=== PATIENT | male | born 1965 | race Caucasian/White ===

== ENCOUNTER 2023-06-30 16:06 | Inpatient (IN) | payer MEDICARE, OTHER ==
[~2023-06-30] VITALS: Ht 175.3 cm; Wt 131.5 kg
[2023-06-30 17:16] LABS: BASOPHILS # (AUTO) 0.1 K/uL (0.0-0.2); EOSINOPHILS # (AUTO) 0.1 K/uL (0.0-0.7); EOSINOPHILS % (AUTO) 1.5 % (0.0-6.0); HEMATOCRIT 42 % (39-51); HEMOGLOBIN 14.2 g/dL (13.5-17.5); LYMPHOCYTES # (AUTO) 1.3 K/uL (0.8-4.8); LYMPHOCYTES % (AUTO) 26.3 % (20.0-44.0); MEAN CORPUSCULAR HEMOGLOBIN 33 PG (26.0-33.0); MEAN CORPUSCULAR HGB CONC 34 g/dl (31.0-36.0); MEAN CORPUSCULAR VOLUME 95 fL (80-96); MONOCYTES # (AUTO) 0.7 K/uL (0.1-1.30); MONOCYTES % (AUTO) 13.2 % (2.0-12.0); NEUTROPHILS # (AUTO) 2.9 K/uL (1.8-8.9); PLATELET COUNT (AUTO) 180 K/uL (150-450); RED BLOOD CELL COUNT(AUTO) 4.35 MIL/uL (4.5-6.0); RED CELL DISTRIBUTION WIDTH 13.1 % (11.5-15.0); WHITE BLOOD COUNT (AUTO) 5.1 K/uL (4.3-11.0)
[2023-06-30 17:21] LABS: APPEARANCE,URINE CLEAR (CLEAR); BILIRUBIN,URINE NEGATIVE (NEGATIVE); BLOOD, URINE NEGATIVE Ery/uL (NEGATIVE); COLOR,URINE YELLOW (YELLOW); KETONES,URINE TRACE mg/dL (NEGATIVE); LEUKOCYTE ESTERASE ,URINE NEGATIVE (NEGATIVE); NITRITE, URINE NEGATIVE (NEGATIVE); PH,URINE 7.5 (5.0-8.0); PROTEIN,URINE NEGATIVE (NEGATIVE); UGLUCOSE NEGATIVE (NEGATIVE); UROBILINOGEN,URINE 0.2 EU/dL (0.2)
[2023-06-30 17:27] LABS: CALCIUM, SERUM 9.2 mg/dL (8.5-10.1); CREATININE 0.9 mg/dL (0.6-1.3); POTASSIUM 4.3 mmol/L (3.5-5.1)
[2023-06-30 17:27] LABS: ADD URINE CULTURE NO; BACTERIA,URINE None seen /HPF (None Seen); RBC,URINE 0-2 /HPF (0-2); SQUAMOUS EPITHELIAL CELL,UR 0-2 /HPF (None Seen); WBC,URINE 0-2 /HPF (0-3)
[2023-06-30] MEDS ORDERED: MORPHINE SULFATE INJ 2 MG/ML DISP.SYRIN IV PRN (17:30)
[2023-06-30] MEDS ORDERED: MAGNESIUM HYDROXIDE 30 ML UDC PO PRN (17:30)
[2023-06-30] MEDS ORDERED: ONDANSETRON HCL/PF 4 MG/2 ML VIAL IVP PRN (17:30)
[2023-06-30] MEDS ORDERED: MAG HYDROX/AL HYDROX/SIMETH 30 ML UDC PO PRN (17:30)
[2023-06-30] MEDS ORDERED: ACETAMINOPHEN 325 MG TABLET PO PRN (17:30)
[2023-06-30 18:06] LABS: ANISOCYTOSIS 1+; BAND % (MANUAL) 2 % (0.0-5.0); LYMPHOCYTES % (MANUAL) 29 % (16-48); MONOCYTES % (MANUAL) 11 % (0-11.0); NEUTROPHILS % (MANUAL) 58 (42-76); PLATELET ESTIMATE ADEQUATE
[2023-06-30 21:00] VITALS: BP 136/99; TEMP 97.9; O2SAT 93
[2023-07-01 00:08] VITALS: BP 136/99; TEMP 97.9; O2SAT 95
[2023-07-01] MEDS ORDERED: LACT10SO58 PO (01:59)
[2023-07-01] MEDS ORDERED: HALO10TA13 PO (01:59)
[2023-07-01] MEDS ORDERED: DIVA500T2 PO (01:59)
[2023-07-01] MEDS ORDERED: CARV6.25 PO (01:59)
[2023-07-01] MEDS ORDERED: TYL2T PO (01:59)
[2023-07-01] MEDS ORDERED: OLAN7.5T3 PO (01:59)
[2023-07-01] MEDS ORDERED: ONDA-97 PO (01:59)
[2023-07-01] MEDS ORDERED: DIVA-78 PO (01:59)
[2023-07-01] MEDS ORDERED: OLAN5TAB3 PO (01:59)
[2023-07-01 05:56] LABS: BASOPHILS % (AUTO) 0.5 % (0.0-2.0); EOSINOPHILS # (AUTO) 0.1 K/uL (0.0-0.7); EOSINOPHILS % (AUTO) 1.9 % (0.0-6.0); HEMATOCRIT 39 % (39-51); HEMOGLOBIN 13.4 g/dL (13.5-17.5); LYMPHOCYTES # (AUTO) 1.4 K/uL (0.8-4.8); LYMPHOCYTES % (AUTO) 33.2 % (20.0-44.0); MEAN CORPUSCULAR HEMOGLOBIN 33 PG (26.0-33.0); MEAN CORPUSCULAR HGB CONC 35 g/dl (31.0-36.0); MEAN CORPUSCULAR VOLUME 96 fL (80-96); MONOCYTES # (AUTO) 0.5 K/uL (0.1-1.30); NEUTROPHILS # (AUTO) 2.2 K/uL (1.8-8.9); NEUTROPHILS % (AUTO) 52.4 % (43.0-81.0); PLATELET COUNT (AUTO) 153 K/uL (150-450); RED BLOOD CELL COUNT(AUTO) 4.05 MIL/uL (4.5-6.0); RED CELL DISTRIBUTION WIDTH 13.2 % (11.5-15.0); WHITE BLOOD COUNT (AUTO) 4.2 K/uL (4.3-11.0)
[2023-07-01 06:13] LABS: ALBUMIN 2.9 g/dL (3.4-5.0); BILIRUBIN,TOTAL 0.4 mg/dL (0.2-1.0); CALCIUM, SERUM 8.8 mg/dL (8.5-10.1); CREATININE 0.8 mg/dL (0.6-1.3); POTASSIUM 4.4 mmol/L (3.5-5.1); TOTAL PROTEIN, SERUM 6.2 g/dL (6.4-8.2)
[2023-07-01 06:15] LABS: EOSINOPHILS % (MANUAL) 1 % (0-4); LYMPHOCYTES % (MANUAL) 39 % (16-48); MONOCYTES % (MANUAL) 10 % (0-11.0); NEUTROPHILS % (MANUAL) 50 (42-76); PLATELET ESTIMATE ADEQUATE
[2023-07-01 08:00] VITALS: BP 125/77; TEMP 98.7; O2SAT 94
[2023-07-01] MEDS ORDERED: DIVALPROEX SODIUM 500 MG TABLET.DR PO SCH (09:00)
[2023-07-01] MEDS ORDERED: CHOL3000 PO (09:11)
[2023-07-01] MEDS ORDERED: SODI100037 PO (09:11)
[2023-07-01] MEDS ORDERED: ACET-868 PO (09:11)
[2023-07-01] MEDS ORDERED: MULT-754 PO (09:11)
[2023-07-01] MEDS: OLANZAPINE 5 MG TABLET PO SCH (09:35)
[2023-07-01] MEDS: CARVEDILOL 6.25 MG TABLET PO SCH ×2 (09:35→16:36)
[2023-07-01] MEDS: DIVALPROEX SODIUM 500 MG TABLET.DR PO SCH ×2 (09:35→16:37)
[2023-07-01] MEDS: HALOPERIDOL 5 MG TABLET PO SCH ×2 (09:36→16:36)
[2023-07-01 16:00] VITALS: BP 116/80; TEMP 98.2; O2SAT 96
[2023-07-01] MEDS: OLANZAPINE 2.5 MG TABLET PO SCH (17:05)
[2023-07-01] MEDS: ENOXAPARIN SODIUM 40 MG/0.4 ML DISP.SYRIN SQ SCH (17:12)
[2023-07-01 20:00] VITALS: BP 110/75; TEMP 97.9; O2SAT 93
[2023-07-02 08:00] VITALS: BP 127/83; TEMP 97.7; O2SAT 95
[2023-07-02] MEDS: OLANZAPINE 5 MG TABLET PO SCH (08:13)
[2023-07-02] MEDS: DIVALPROEX SODIUM 500 MG TABLET.DR PO SCH ×2 (08:13→17:18)
[2023-07-02] MEDS: HALOPERIDOL 5 MG TABLET PO SCH ×2 (08:14→17:18)
[2023-07-02] MEDS: CARVEDILOL 6.25 MG TABLET PO SCH ×2 (08:15→17:17)
[2023-07-02 15:59] VITALS: BP 138/94; TEMP 97.5; O2SAT 94
[2023-07-02] MEDS: ENOXAPARIN SODIUM 40 MG/0.4 ML DISP.SYRIN SQ SCH (17:15)
[2023-07-02] MEDS: OLANZAPINE 2.5 MG TABLET PO SCH (17:18)
[2023-07-02 20:46] VITALS: BP 115/77; TEMP 98.4; O2SAT 92
[2023-07-03 08:00] VITALS: BP 127/84; TEMP 97.6; O2SAT 94
[2023-07-03] MEDS: HALOPERIDOL 5 MG TABLET PO SCH (08:52)
[2023-07-03 08:53] VITALS: BP 127/84
[2023-07-03] MEDS: OLANZAPINE 5 MG TABLET PO SCH (08:53)
[2023-07-03] MEDS: DIVALPROEX SODIUM 500 MG TABLET.DR PO SCH (08:53)
[2023-07-03] MEDS: CARVEDILOL 6.25 MG TABLET PO SCH (08:53)
== END 2023-07-03 13:54 | DRG 641 ==
LOC: ER 16:30 → MED 18:45
PROVIDERS: ADMIT Internal Medicine; ATTEND Internal Medicine
DX: R62.7 Adult failure to thrive (principal); E87.1 Hypo-osmolality and hyponatremia; N39.0 Urinary tract infection, site not specified; F20.9 Schizophrenia, unspecified; G40.909 Epilepsy, unspecified, not intractable, without status epilepticus; R33.9 Retention of urine, unspecified; I10 Essential (primary) hypertension; J44.9 Chronic obstructive pulmonary disease, unspecified; F31.9 Bipolar disorder, unspecified; F41.9 Anxiety disorder, unspecified; G47.00 Insomnia, unspecified; E55.9 Vitamin D deficiency, unspecified; F79 Unspecified intellectual disabilities; D64.9 Anemia, unspecified
CPT/HCPCS: 36415; 80048-TC; 80053-TC; 80164-TC; 81001; 83735-TC; 84100-TC; 85025-TC; 87081-TC; G0378; J1650

== ENCOUNTER 2024-12-18 15:56 | Inpatient (IN) | payer MEDICARE, OTHER ==
[~2024-12-18] VITALS: Ht 175.3 cm; Wt 139.3 kg
[~2024-12-18 15:56] MED LIST: ACET-868 PO; CARV6.25 PO; CHOL3000 PO; DIVA500T2 PO; HALO10TA13 PO; LACT10SO58 PO; MULT-754 PO; OLAN5TAB3 PO; OLAN7.5T3 PO; ONDA-97 PO; SODI100037 PO
[2024-12-18 17:09] LABS: BASOPHILS % (AUTO) 0.8 % (0.0-2.0); EOSINOPHILS # (AUTO) 0.1 K/uL (0.0-0.7); EOSINOPHILS % (AUTO) 1.2 % (0.0-6.0); HEMATOCRIT 44 % (39-51); LYMPHOCYTES # (AUTO) 1.6 K/uL (0.8-4.8); LYMPHOCYTES % (AUTO) 26.2 % (20.0-44.0); MEAN CORPUSCULAR HEMOGLOBIN 34 PG (26.0-33.0); MEAN CORPUSCULAR HGB CONC 34 g/dl (31.0-36.0); MEAN CORPUSCULAR VOLUME 97 fL (80-96); MONOCYTES # (AUTO) 0.9 K/uL (0.1-1.30); MONOCYTES % (AUTO) 14.7 % (2.0-12.0); NEUTROPHILS # (AUTO) 3.4 K/uL (1.8-8.9); NEUTROPHILS % (AUTO) 57.1 % (43.0-81.0); PLATELET COUNT (AUTO) 165 K/uL (150-450); RED BLOOD CELL COUNT(AUTO) 4.47 MIL/uL (4.5-6.0); RED CELL DISTRIBUTION WIDTH 13.2 % (11.5-15.0)
[2024-12-18 17:22] LABS: ALANINE AMINOTRANSFERASE 14 U/L (12-78); ALBUMIN 3.3 g/dL (3.4-5.0); ALCOHOL, BLOOD < 3 mg/dL (0-10); ALKALINE PHOSPHATASE 66 U/L (46-116); ASPARTATE AMINOTRANSFERASE 12 U/L (15-37); BILIRUBIN,DIRECT 0.1 mg/dL (0.0-0.2); BILIRUBIN,TOTAL 0.3 mg/dL (0.2-1.0); CALCIUM, SERUM 8.8 mg/dL (8.5-10.1); CARBON DIOXIDE 28 mmol/L (21-32); CHLORIDE 106 mmol/L (98-107); CREATININE 0.8 mg/dL (0.6-1.3); GLUCOSE 100 mg/dL (74-106); POTASSIUM 4.5 mmol/L (3.5-5.1); SODIUM SERUM 144 mmol/L (136-145); TOTAL PROTEIN, SERUM 6.8 g/dL (6.4-8.2); UREA NITROGEN, BLOOD 17 mg/dL (7-18)
[2024-12-18 17:25] LABS: ACETAMINOPHEN <10 ug/ml (10-30); SALICYLATE 1.6 mg/dL (2.8-20.0)
[2024-12-18 17:34] LABS: APPEARANCE,URINE CLEAR (CLEAR); BILIRUBIN,URINE NEGATIVE (NEGATIVE); BLOOD, URINE NEGATIVE Ery/uL (NEGATIVE); COLOR,URINE YELLOW (YELLOW); KETONES,URINE 1+ mg/dL (NEGATIVE); LEUKOCYTE ESTERASE ,URINE NEGATIVE (NEGATIVE); NITRITE, URINE NEGATIVE (NEGATIVE); PH,URINE 6.5 (5.0-8.0); PROTEIN,URINE NEGATIVE (NEGATIVE); UGLUCOSE NEGATIVE (NEGATIVE)
[2024-12-18 17:35] LABS: ADD URINE CULTURE NO; BACTERIA,URINE Few /HPF (None Seen); RBC,URINE 0-2 /HPF (0-2); SQUAMOUS EPITHELIAL CELL,UR Rare /HPF (None Seen); WBC,URINE 0-2 /HPF (0-3)
[2024-12-18 17:58] LABS: AMPHETAMINE, URINE NEGATIVE (NEGATIVE); BARBITURATE, URINE NEGATIVE (NEGATIVE); BENZODIAZEPINE, URINE NEGATIVE (NEGATIVE); CANNABINOID, URINE NEGATIVE (NEGATIVE); COCCAINE, URINE NEGATIVE (NEGATIVE); OPIATE, URINE NEGATIVE (NEGATIVE); PHENCYCLIDINE SCREEN,URINE NEGATIVE (NEGATIVE)
[2024-12-18] MEDS ORDERED: Medication Not On Formulary EA (Ondansetron Hcl 4 MG) PO PRN (18:00)
[2024-12-18] MEDS ORDERED: MAG HYDROX/AL HYDROX/SIMETH 30 ML UDC PO PRN (20:00)
[2024-12-18] MEDS ORDERED: ACETAMINOPHEN 325 MG TABLET PO PRN (20:00)
[2024-12-18] MEDS ORDERED: MAGNESIUM HYDROXIDE 30 ML UDC PO PRN (20:00)
[2024-12-18] MEDS ORDERED: ONDANSETRON HCL/PF 4 MG/2 ML VIAL IVP PRN (20:00)
[2024-12-18] MEDS ORDERED: Z GUARD REMEDY 4 OZ OINT TP PRN (20:00)
[2024-12-18] MEDS: dexaMETHasone SOD PHOSPHATE 10 MG/ML VIAL IV SCH (22:28)
[2024-12-18] MEDS: ENOXAPARIN SODIUM 40 MG/0.4 ML DISP.SYRIN SQ SCH (22:29)
[2024-12-19 04:04] VITALS: BP 130/76; TEMP 97.7; O2SAT 94
[2024-12-19 08:51] LABS: BASOPHILS % (AUTO) 0.3 % (0.0-2.0); HEMATOCRIT 45 % (39-51); HEMOGLOBIN 15.6 g/dL (13.5-17.5); LYMPHOCYTES # (AUTO) 0.8 K/uL (0.8-4.8); LYMPHOCYTES % (AUTO) 16.5 % (20.0-44.0); MEAN CORPUSCULAR HEMOGLOBIN 34 PG (26.0-33.0); MEAN CORPUSCULAR HGB CONC 35 g/dl (31.0-36.0); MEAN CORPUSCULAR VOLUME 98 fL (80-96); MONOCYTES # (AUTO) 0.1 K/uL (0.1-1.30); MONOCYTES % (AUTO) 2.1 % (2.0-12.0); NEUTROPHILS # (AUTO) 3.8 K/uL (1.8-8.9); NEUTROPHILS % (AUTO) 81.1 % (43.0-81.0); PLATELET COUNT (AUTO) 165 K/uL (150-450); RED BLOOD CELL COUNT(AUTO) 4.62 MIL/uL (4.5-6.0); RED CELL DISTRIBUTION WIDTH 13.3 % (11.5-15.0); WHITE BLOOD COUNT (AUTO) 4.7 K/uL (4.3-11.0)
[2024-12-19] MEDS: LACTULOSE 10 G/15 ML UDC (PYXIS) PO SCH (08:59)
[2024-12-19] MEDS: CARVEDILOL 6.25 MG TABLET PO SCH (08:59)
[2024-12-19] MEDS ORDERED: SODIUM CHLORIDE 1000 MG TABLET PO SCH (09:00)
[2024-12-19] MEDS: MULTIVITAMINS,THERAGRAN 1 UDTAB TABLET PO SCH (09:00)
[2024-12-19 09:11] LABS: CALCIUM, SERUM 8.6 mg/dL (8.5-10.1); CREATININE 0.8 mg/dL (0.6-1.3); POTASSIUM 4.9 mmol/L (3.5-5.1)
[2024-12-19] MEDS ORDERED: ONDA4TAB5 PO (10:06)
[2024-12-19] MEDS ORDERED: OLAN2.5T3 PO (10:06)
[2024-12-19] MEDS: SODIUM CHLORIDE 1000 MG TABLET PO SCH (12:25)
[2024-12-19 20:00] VITALS: BP 141/93; TEMP 98.6; O2SAT 95
[2024-12-20 07:55] LABS: CALCIUM, SERUM 8.9 mg/dL (8.5-10.1); CREATININE 0.7 mg/dL (0.6-1.3); POTASSIUM 4.8 mmol/L (3.5-5.1)
[2024-12-20 08:11] LABS: BASOPHILS % (AUTO) 0.2 % (0.0-2.0); EOSINOPHILS % (AUTO) 0.3 % (0.0-6.0); HEMATOCRIT 44 % (39-51); HEMOGLOBIN 15.1 g/dL (13.5-17.5); LYMPHOCYTES # (AUTO) 1.6 K/uL (0.8-4.8); LYMPHOCYTES % (AUTO) 18.8 % (20.0-44.0); MEAN CORPUSCULAR HEMOGLOBIN 33 PG (26.0-33.0); MEAN CORPUSCULAR HGB CONC 35 g/dl (31.0-36.0); MEAN CORPUSCULAR VOLUME 97 fL (80-96); MONOCYTES # (AUTO) 0.9 K/uL (0.1-1.30); MONOCYTES % (AUTO) 10.7 % (2.0-12.0); NEUTROPHILS # (AUTO) 6.1 K/uL (1.8-8.9); PLATELET COUNT (AUTO) 165 K/uL (150-450); RED BLOOD CELL COUNT(AUTO) 4.54 MIL/uL (4.5-6.0); RED CELL DISTRIBUTION WIDTH 13.2 % (11.5-15.0); WHITE BLOOD COUNT (AUTO) 8.7 K/uL (4.3-11.0)
[2024-12-20 20:00] VITALS: BP 126/82; TEMP 98.4; O2SAT 95
[2024-12-20] MEDS: DIVALPROEX SODIUM 250 MG TABLET.DR PO SCH (20:23)
[2024-12-20] MEDS: OLANZAPINE 5 MG TABLET PO SCH (21:14)
[2024-12-21 04:00] VITALS: BP 134/88; TEMP 98.6; O2SAT 95
[2024-12-21 08:00] VITALS: BP 130/85; TEMP 97.9; O2SAT 95
[2024-12-21 08:32] VITALS: BP 130/85
[2024-12-21] MEDS: OLANZAPINE 2.5 MG TABLET PO SCH (08:33)
[2024-12-21 09:43] LABS: VALPROIC ACID 16 ug/mL (50-100)
[2024-12-21 10:41] LABS: SERUM AMMONIA 27 umol/L (11-32)
== END 2024-12-21 13:41 | DRG 177 ==
LOC: ER 16:00 → MEDSG1 21:19
PROVIDERS: ADMIT Internal Medicine; ATTEND Internal Medicine
DX: U07.1 COVID-19 (principal); J96.01 Acute respiratory failure with hypoxia; E72.20 Disorder of urea cycle metabolism, unspecified; G93.40 Encephalopathy, unspecified; G40.909 Epilepsy, unspecified, not intractable, without status epilepticus; I10 Essential (primary) hypertension; J44.9 Chronic obstructive pulmonary disease, unspecified; F20.9 Schizophrenia, unspecified; F31.9 Bipolar disorder, unspecified; F41.9 Anxiety disorder, unspecified; E55.9 Vitamin D deficiency, unspecified; Z79.899 Other long term (current) drug therapy; G47.00 Insomnia, unspecified; F29 Unspecified psychosis not due to a substance or known physiological condition; E66.01 Morbid (severe) obesity due to excess calories; Z87.891 Personal history of nicotine dependence; Z91.148 Patient's other noncompliance with medication regimen for other reason; Z91.51 Personal history of suicidal behavior
CPT/HCPCS: 36415; 71045-TC; 80048-TC; 80076-TC; 80164-TC; 81001; 82140-TC; 83735-TC; 84100-TC; 85025-TC; 85378-TC; 86140-TC; 87081-TC; A4223; G0378; G0480; J1100; J1650; J7060